=== PATIENT | female | born 1970 | race Caucasian/White ===

== ENCOUNTER 2018-09-19 09:24 | Day surgery (SDC) | payer OTHER ==
[~2018-09-19 09:24] MED LIST: KETOROLAC TROMETHAMINE 0.45% 4 DROP/0.4 ML DROPERETTE OD PRN
[2018-09-19] MEDS ORDERED: CHONDR SU A NA/HYALUR INTRAOC KIT (SURGICARE) ONE (10:09)
[2018-09-19] MEDS: TETRACAINE HCL 0.5% OPH SOLN 0.6 ML DROPERETTE OD PRN ×2 (10:30→10:55)
[2018-09-19] MEDS: BESIFLOXACIN HCL 0.6% OPH SUSP 5 ML BOTTLE OD PRN ×4 (10:31→11:29)
[2018-09-19] MEDS: CYCLOPENTOLATE 0.2%/PHENYLEPHRINE 1% OPH SOLN 2 ML OD PRN ×3 (10:31→10:53)
[2018-09-19] MEDS: TROPICAMIDE 1% OPH SOLN 3 ML OD PRN ×3 (10:31→10:53)
[2018-09-19] MEDS ORDERED: MIDAZOLAM 2 MG/2 ML INJ ONE (10:46)
[2018-09-19] MEDS ORDERED: FENTANYL CITRATE INJ/PF 100 MCG/2 ML AMPUL ONE (10:46)
[2018-09-19] MEDS: LIDOCAINE 4% INJ/PF (40 MG/ML) 5 ML AMPUL OD PRN ×2 (11:15→11:17)
[2018-09-19] MEDS: BUPIVACAINE HCL 0.75% INJ/PF (7.5 MG/1 ML) 10 ML SDV OD PRN ×2 (11:15→11:17)
[2018-09-19] MEDS: LIDOCAINE 1% INJ-PF (10 MG/ML) 30 ML SDV ONE ×2 (11:15→11:17)
[2018-09-19] MEDS: EPINEPHRINE INJ/PF 1 MG/1 ML AMPULE ONE ×2 (11:16→11:17)
[2018-09-19] MEDS ORDERED: HYALURONATE SODIUM SYRINGE 0.55 ML ONE (11:26)
--- NOTE | 2018-10-10 18:32 | [facility] OPERATIVE REPORT E ---
[facility] Operative Report NAME: SHANNAN DE GUZMAN AGE: 48Y DATE OF SURGERY: 09/19/2018 ROOM: PREOPERATIVE DIAGNOSIS: Cataract, right eye. POSTOPERATIVE DIAGNOSIS: Cataract, right eye. PROCEDURE PERFORMED: Phacoemulsification with posterior chamber intraocular lens implant, right eye. SURGEON: ELIER SINGH M.D. ANESTHESIA: Topical with MAC. PROCEDURE: The patient was brought to the operating room and placed on the operative table. Following tetracaine drops, topical anesthesia was administered. This consisted of instrument wipe pledgets soaked in a solution of 4% Xylocaine mixed with 0.75% Marcaine in a 1:2 ratio. A 2 x 1 cm pledget was placed in the superior fornix. A 1 x 1 cm pledget was placed in the inferior fornix. The eye was patched shut for 5 minutes. The patch was removed. The eye was sterilely prepped and draped in the usual manner. Lid speculum was placed in the eye. The pledgets were removed and 4-0 black silk sutures were placed around the superior and the inferior rectus muscles to be used as traction. A conjunctival peritomy was made at the 10 o'clock position. Hemostasis was obtained with bipolar cautery. A posterior limbal groove was created using a crescent knife and dissected anteriorly towards the cornea. A sharp point blade was used to create a paracentesis site at the 2 o'clock position. A 2.4 mm keratome was used to enter the anterior chamber through the groove. Viscoelastic was injected into the anterior chamber. An anterior capsulotomy was performed using Utrata forceps in a capsulorrhexis fashion. Hydrodissection and hydrodelineation were performed. Phacoemulsification was performed in irdugo-[id number]-[id number] technique. Total phaco time was 3.19 CDE. Following this, the I/A unit was used to remove residual cortex. Viscoelastic was injected into the capsular bag. Intraocular lens model ZCB00, 11.5 diopters, serial number [id number], was placed in the capsular bag. The I/A unit was used to remove residual viscoelastic. The wound was seen to be watertight under high and low pressure, and no sutures were placed. The intraocular lens was well centered. The pressure was adjusted in the eye to normal pressure. The 4-0 black silk sutures and lid speculum were removed. The eye was shielded after Besivance drops were placed. The patient tolerated the procedure well and was sent to the recovery room in good condition. A drop of Cosopt was placed in the eye at the end of surgery. DICTATING PHYSICIAN: ELIER SINGH M.D. [id number] PHY#: [id number] ID: [id number] JOB#: [id number] ACCT: [id number] cc:ELIER SINGH M.D. > MTDD
--- NOTE | 2018-10-10 18:37 | [facility] DISCHARGE SUMMARY E ---
[facility] Discharge Summary NAME: SHANNAN DE GUZMAN AGE: 48Y ADMITTED: 09/19/2018 DISCHARGED: 09/19/2018 FINAL DIAGNOSIS: Cataract, right eye. PROCEDURE PERFORMED: Phacoemulsification with posterior chamber intraocular lens implant, right eye. HOSPITAL COURSE: The patient is a 48-year-old lady who underwent uneventful cataract extraction with intraocular lens implant right eye on 09/19/18. Her complaints prior to surgery were difficulty driving. She will be discharged to home. DISCHARGE INSTRUCTIONS: She is instructed to resume preoperative medications, take Tylenol as needed for discomfort. To keep eye shielded. To use Durezol, PROLENSA, and Besivance at 3 p.m. and 8 p.m. To follow up in my office in one day. DICTATING PHYSICIAN: ELIER SINGH M.D. [id number] [id number] PHY#: [id number] ID: [id number] JOB#: [id number] ACCT: [id number] cc:ELIER SINGH M.D. >
== END 2018-09-19 12:24 | disposition home or self-care (01) ==
LOC: SC 09:24
PROVIDERS: ATTEND Ophthalmology
DX: H25.812 Combined forms of age-related cataract, left eye (principal); H16.223 Keratoconjunctivitis sicca, not specified as Sjogren's, bilateral; I49.9 Cardiac arrhythmia, unspecified
CPT/HCPCS: 66984; V2632; J2250; J3490 ×5; J0171; J3010; 142